=== PATIENT | male | born 1970 | race Caucasian/White ===

== ENCOUNTER 2018-05-26 17:59 | Emergency (ER) | payer OTHER ==
[~2018-05-26] VITALS: Ht 172.7 cm; Wt 65.8 kg
--- NOTE | 2018-05-26 18:25 | NUR ---
Patient discharged to home in stable conditon. Written and verbal after care instructions given. Patient verbalizes understanding of instructions. Rx x 2 given.Pt ambulatory with a steady gait
[2018-05-26 18:26] VITALS: BP 128/62
== END 2018-05-26 18:27 | disposition home or self-care (01) ==
LOC: ER 18:02
DX: M35.01 Sjogren syndrome with keratoconjunctivitis (principal); F17.290 Nicotine dependence, other tobacco product, uncomplicated
CPT/HCPCS: A4663